=== PATIENT | male | born 1950 | race Caucasian/White ===

== ENCOUNTER 2018-03-18 17:13 | Emergency (ER) | payer OTHER ==
[2018-03-18] MEDS ORDERED: SODIUM CHLORIDE 0.9% 1000ML 1,000 ML IV ONE (17:41)
[2018-03-18 17:54] LABS: BASOPHILS % (AUTO) 0.4 % (0.0-5.0); EOSINOPHILS % (AUTO) 1.5 % (0.0-8.0); LYMPHOCYTES % (AUTO) 10.2 % (21.0-51.0); MEAN CORPUSCULAR HEMOGLOBIN 31.9 pg (27.0-33.0); MEAN CORPUSCULAR HGB CONC 33.9 g/dL (32.0-36.0); NEUTROPHILS % (AUTO) 75.9 % (40.0-77.0); PLATELET COUNT (AUTO) 211 K/uL (130-400); RED BLOOD CELL COUNT(AUTO) 4.57 MIL/uL (4.50-6.20); RED CELL DISTRIBUTION WIDTH 13.3 % (11.0-15.5); WHITE BLOOD COUNT (AUTO) 9.7 K/uL (4.8-10.8)
[2018-03-18 18:09] LABS: CREATININE 1.3 mg/dL (0.5-1.5); POTASSIUM 3.6 mmol/L (3.5-5.1)
[2018-03-18 18:13] LABS: ALBUMIN 3.4 g/dL (3.5-5.0); BILIRUBIN,TOTAL 0.3 mg/dL (0.2-1.0); TOTAL PROTEIN, SERUM 6.8 g/dL (6.0-8.3)
[2018-03-18] MEDS ORDERED: ONDANSETRON HCL 4 MG/2 ML VIAL ONE (18:26)
[2018-03-18] MEDS ORDERED: HYDROMORPHONE 1 MG/1 ML AMP ONE (18:26)
[2018-03-18 19:51] LABS: APPEARANCE,URINE Clear (CLEAR); BILIRUBIN,URINE Negative (NEGATIVE); COLOR,URINE Yellow (YELLOW); GLUCOSE, URINE (UA) Negative (NEGATIVE); KETONES,URINE Negative (NEGATIVE); LEUKOCYTE ESTERASE ,URINE Negative (NEGATIVE); NITRATE,URINE Negative (NEGATIVE); OCCULT BLOOD,URINE Small (NEGATIVE); PH,URINE 6.5 (5.0-8.0); PROTEIN,URINE Negative (NEGATIVE); UROBILINOGEN,URINE 0.2 mg/dL (0.2-1.0)
[2018-03-18 20:17] LABS: AMORPHOUS SEDIMENT,UR Rare /LPF (None Seen); BACTERIA,URINE Rare /HPF (None Seen); SQUAMOUS EPITHELIAL CELL,UR Rare /HPF (0-2); WBC,URINE 0-1 /HPF (0-1)
== END 2018-03-18 20:27 | disposition home or self-care (01) ==
LOC: EDH 17:13
DX: N20.1 Calculus of ureter (principal); I10 Essential (primary) hypertension; E11.9 Type 2 diabetes mellitus without complications; I25.10 Atherosclerotic heart disease of native coronary artery without angina pectoris; Z88.6 Allergy status to analgesic agent; Z90.49 Acquired absence of other specified parts of digestive tract; Z98.890 Other specified postprocedural states; Z87.891 Personal history of nicotine dependence
CPT/HCPCS: 36415; 74176; 80053; 81001; 83690; 84484; 85025; 93005; 96361; 96374; 96375; 99284; J1170; J2405; J7030

== ENCOUNTER 2021-11-23 11:21 | Emergency (ER) | payer OTHER ==
[~2021-11-23] VITALS: Ht 182.9 cm; Wt 84.8 kg
[2021-11-23] MEDS ORDERED: ASPIRIN 81MG CHEW TAB PO ONE (11:30)
[2021-11-23] MEDS ORDERED: LACTATED RINGERS 1000ML 1,000 ML IV ONE (11:30)
[2021-11-23 11:41] LABS: BASOPHILS % (AUTO) 0.2 % (0.0-5.0); EOSINOPHILS % (AUTO) 0.1 % (0.0-8.0); HEMATOCRIT 48.6 % (42-54); LYMPHOCYTES % (AUTO) 2.5 % (21.0-51.0); MEAN CORPUSCULAR HEMOGLOBIN 32.6 pg (27.0-33.0); MEAN CORPUSCULAR HGB CONC 34.4 g/dL (32.0-36.0); MEAN CORPUSCULAR VOLUME 94.9 fL (79-99); MONOCYTES % (AUTO) 6.3 % (3.0-13.0); NEUTROPHILS % (AUTO) 90.4 % (40.0-77.0); PLATELET COUNT (AUTO) 247 K/uL (130-400); RED BLOOD CELL COUNT(AUTO) 5.12 MIL/uL (4.50-6.20); RED CELL DISTRIBUTION WIDTH 13.3 % (11.0-15.5); WHITE BLOOD COUNT (AUTO) 11.7 K/uL (4.8-10.8)
[2021-11-23 11:54] LABS: CREATININE 1.1 mg/dL (0.5-1.5); POTASSIUM 4.1 mmol/L (3.5-5.1)
[2021-11-23 11:57] LABS: PROTHROMBIN TIME 10.9 SEC (9.6-11.6)
[2021-11-23 11:58] LABS: PARTIAL THROMBOPLASTIN TIME 25.4 SEC (26.3-35.5)
[2021-11-23 12:01] LABS: MAGNESIUM 1.9 mg/dL (1.80-2.40)
[2021-11-23 12:06] LABS: B-TYPE NATRIURETIC PEPTIDE 22 pg/mL (0-100)
[2021-11-23] MEDS ORDERED: MAG/ALUM/SIMETH 30 ML UDCUP PO ONE (12:30)
[2021-11-23] MEDS ORDERED: DICYCLOMINE HCL 10 MG/5 ML ML PO ONE (12:30)
[2021-11-23] MEDS ORDERED: LIDOCAINE HCL 2% VISCOUS 15 ML UDCUP PO ONE (12:30)
[2021-11-23 13:17] LABS: APPEARANCE,URINE CLOUDY (CLEAR); BILIRUBIN,URINE NEGATIVE (NEGATIVE); COLOR,URINE YELLOW (YELLOW); GLUCOSE, URINE (UA) NEGATIVE (NEGATIVE); KETONES,URINE 5 mg/dL (NEGATIVE); LEUKOCYTE ESTERASE ,URINE NEGATIVE Leu/uL (NEGATIVE); NITRATE,URINE NEGATIVE (NEGATIVE); OCCULT BLOOD,URINE NEGATIVE (NEGATIVE); PROTEIN,URINE 30 mg/dL (NEGATIVE); UROBILINOGEN,URINE 0.2 mg/dL (0.2-1.0)
[2021-11-23 13:42] VITALS: BP 123/67
[2021-11-23 13:44] LABS: RBC,URINE 0-1 /HPF (0-1)
[2021-11-23 13:45] LABS: AMORPHOUS SEDIMENT,UR Few /LPF (None Seen); BACTERIA,URINE Few /HPF (None Seen); SQUAMOUS EPITHELIAL CELL,UR None Seen /HPF (0-2); WBC,URINE 0-1 /HPF (0-1)
[2021-11-23] MEDS ORDERED: PANT40TA55 PO (13:51)
== END 2021-11-23 14:02 | disposition home or self-care (01) ==
LOC: EDH 11:21
DX: K29.70 Gastritis, unspecified, without bleeding (principal); Z88.6 Allergy status to analgesic agent
CPT/HCPCS: 99285; 96360; 71045; 96361; 82550; 83735; 83874; 84484; 80053; 83880; 83690; 85025; 85610; 85730; 81001; 36415; 93005 ×2; J7120

== ENCOUNTER → 2021-12-23 | Outpatient (CLI) | payer OTHER ==
[~2021-12-23] MED LIST: PANT40TA55 PO
== END | disposition home or self-care (01) ==
LOC: RAH 10:14
PROVIDERS: ATTEND Family Medicine
DX: M16.12 Unilateral primary osteoarthritis, left hip (principal); M25.552 Pain in left hip
CPT/HCPCS: 73502

== ENCOUNTER 2022-07-30 08:36 | Observation (INO) | payer OTHER ==
[~2022-07-30] VITALS: Ht 182.9 cm; Wt 73.5 kg
[2022-07-30] MEDS ORDERED: ONDANSETRON ODT 4MG TAB ONE (08:59)
[2022-07-30 09:14] LABS: BASOPHILS % (AUTO) 0.3 % (0.0-5.0); EOSINOPHILS % (AUTO) 0.1 % (0.0-8.0); HEMATOCRIT 42.4 % (42-54); LYMPHOCYTES % (AUTO) 7.6 % (21.0-51.0); MEAN CORPUSCULAR HEMOGLOBIN 33.1 pg (27.0-33.0); MEAN CORPUSCULAR HGB CONC 34.2 g/dL (32.0-36.0); MEAN CORPUSCULAR VOLUME 96.8 fL (79-99); MONOCYTES % (AUTO) 11.5 % (3.0-13.0); NEUTROPHILS % (AUTO) 79.4 % (40.0-77.0); PLATELET COUNT (AUTO) 237 K/uL (130-400); RED BLOOD CELL COUNT(AUTO) 4.38 MIL/uL (4.50-6.20); RED CELL DISTRIBUTION WIDTH 13.1 % (11.0-15.5); WHITE BLOOD COUNT (AUTO) 11.5 K/uL (4.8-10.8)
[2022-07-30 09:33] LABS: ALBUMIN 3.4 g/dL (3.5-5.0); CREATININE 1.4 mg/dL (0.5-1.5); POTASSIUM 4.1 mmol/L (3.5-5.1); TOTAL PROTEIN, SERUM 6.5 g/dL (6.0-8.3)
[2022-07-30 09:57] LABS: B-TYPE NATRIURETIC PEPTIDE 32 pg/mL (0-100)
[2022-07-30] MEDS ORDERED: MEPERIDINE-PF 25 MG/ML SYG IVP ONE (11:00)
[2022-07-30] MEDS ORDERED: LACTATED RINGERS 1000ML 1,000 ML IV ONE (11:00)
[2022-07-30] MEDS ORDERED: PROMETHAZINE HCL 25 MG/ML 1ML AMPULE IM ONE (11:00)
[2022-07-30 12:35] LABS: CREATINE KINASE, TOTAL 53 U/L (21-232); LIPASE 167 U/L (114-286)
[2022-07-30] MEDS ORDERED: MAGNESIUM 2GM PREMIX 50ML 50 ML IV PRN (13:00)
[2022-07-30] MEDS ORDERED: MORPHINE 2 MG SYG IV PRN (13:00)
[2022-07-30] MEDS ORDERED: POTASSIUM CHLORIDE 10% ELIXIR 20 MEQ/15 ML UDCUP PO PRN (13:00)
[2022-07-30] MEDS ORDERED: HYDROCODONE/ACETAMINOPHEN 5/325 MG TAB PO PRN (13:00)
[2022-07-30] MEDS: LACTATED RINGERS 1000ML 1,000 ML IV SCH ×2 (13:00→20:09)
[2022-07-30] MEDS ORDERED: POTASSIUM CHLORIDE 20MEQ/100ML 100 ML IV PRN ×2 (13:00)
[2022-07-30] MEDS ORDERED: DiphenhydrAMINE HCL 50 MG/ML VIAL IV PRN (13:00)
[2022-07-30] MEDS ORDERED: LACTULOSE 20 GM/30 ML UDCUP PO PRN (13:00)
[2022-07-30] MEDS ORDERED: CEFTRIAXONE 2GM VIAL IVPB SCH (13:00)
[2022-07-30] MEDS ORDERED: ACETAMINOPHEN 325 MG TAB PO PRN (13:00)
[2022-07-30] MEDS ORDERED: ALBUTEROL 0.083% 2.5 MG/3 ML INH IH PRN (13:00)
[2022-07-30] MEDS ORDERED: MORPHINE 4 MG SYG IV PRN (13:00)
[2022-07-30] MEDS ORDERED: ONDANSETRON 4MG INJ IV PRN (13:00)
[2022-07-30] MEDS ORDERED: GUAIFENESIN-DM 200/20 MG 10 ML PO PRN (13:00)
[2022-07-30] MEDS ORDERED: KCL 20 MEQ ERTAB PO PRN (13:00)
[2022-07-30] MEDS ORDERED: ZOLPIDEM TARTRATE 5 MG TAB PO PRN (13:00)
[2022-07-30] MEDS ORDERED: NITROGLYCERIN 0.4 MG SL TAB SL PRN (13:00)
[2022-07-30] MEDS ORDERED: CEFTRIAXONE 1G VIAL 2 GM in 0.9%NACL 100ML 100 ML IV SCH (13:00)
[2022-07-30] MEDS ORDERED: PHARMACY COMMUNICATION MISC SCH (13:30)
[2022-07-30 16:50] LABS: APPEARANCE,URINE CLEAR (CLEAR); BILIRUBIN,URINE NEGATIVE (NEGATIVE); COLOR,URINE LIGHT-YELLOW (YELLOW); GLUCOSE, URINE (UA) NEGATIVE (NEGATIVE); KETONES,URINE NEGATIVE (NEGATIVE); LEUKOCYTE ESTERASE ,URINE NEGATIVE Leu/uL (NEGATIVE); NITRATE,URINE NEGATIVE (NEGATIVE); OCCULT BLOOD,URINE NEGATIVE (NEGATIVE); PROTEIN,URINE NEGATIVE (NEGATIVE); UROBILINOGEN,URINE 0.2 mg/dL (0.2-1.0)
[2022-07-30 16:54] LABS: BACTERIA,URINE RARE /HPF (None Seen); MUCUS,URINE RARE LPF (None Seen); RBC,URINE 0-1 /HPF (0-1)
[2022-07-30] MEDS: TAMSULOSIN HCL 0.4 MG CAP.ER.24H PO SCH (17:48)
[2022-07-30 18:00] VITALS: BP 121/66
[2022-07-30] MEDS: FAMOTIDINE 20MG VIAL IV SCH (20:08)
[2022-07-30 20:44] VITALS: BP 129/71
[2022-07-31] VITALS (22 sets, daily range): BP systolic 109–167; BP diastolic 56–78
[2022-07-31 05:46] LABS: BASOPHILS % (AUTO) 0.3 % (0.0-5.0); EOSINOPHILS % (AUTO) 0.6 % (0.0-8.0); HEMATOCRIT 37.2 % (42-54); LYMPHOCYTES % (AUTO) 12.9 % (21.0-51.0); MEAN CORPUSCULAR HEMOGLOBIN 33.2 pg (27.0-33.0); MEAN CORPUSCULAR HGB CONC 33.6 g/dL (32.0-36.0); MEAN CORPUSCULAR VOLUME 98.7 fL (79-99); PLATELET COUNT (AUTO) 184 K/uL (130-400); RED BLOOD CELL COUNT(AUTO) 3.77 MIL/uL (4.50-6.20); RED CELL DISTRIBUTION WIDTH 13.2 % (11.0-15.5); WHITE BLOOD COUNT (AUTO) 8.6 K/uL (4.8-10.8)
[2022-07-31 05:59] LABS: MAGNESIUM 2.1 mg/dL (1.80-2.40)
[2022-07-31] MEDS: TAMSULOSIN HCL 0.4 MG CAP.ER.24H PO SCH (08:26)
[2022-07-31] MEDS ORDERED: ENOXAPARIN SODIUM 30 MG/0.3 ML SQ SCH (09:00)
[2022-07-31] MEDS: LACTATED RINGERS 1000ML 1,000 ML IV SCH (09:59)
[2022-07-31] MEDS: FAMOTIDINE 20MG VIAL IV SCH (10:01)
[2022-07-31] MEDS ORDERED: IOHEXOL-350 50ML VIAL IV ONE (10:22)
[2022-07-31] MEDS ORDERED: PROPOFOL 10 MG/ML 20ML VIAL IV ONE ×2 (12:53→14:12)
[2022-07-31] MEDS ORDERED: MIDAZOLAM HCL 1 MG/ML 2ML VIAL ONE (12:53)
[2022-07-31] MEDS ORDERED: ROCURONIUM 10MG/1ML SYR 10 MG/ML ML ONE (12:53)
[2022-07-31] MEDS ORDERED: FENTANYL CITRATE PF 50 MCG/1 ML 2ML VIAL ONE ×2 (12:53→13:20)
[2022-07-31] MEDS ORDERED: ONDANSETRON 4MG INJ ONE (12:53)
[2022-07-31] MEDS ORDERED: NEOSTIGMINE 5MG/5ML SYR IV ONE (14:09)
[2022-07-31] MEDS ORDERED: GLYCOPYRROLATE 1 MG/5 ML SYRINGE ONE (14:09)
[2022-07-31] MEDS ORDERED: CEFTRIAXONE 2GM VIAL IVPB SCH (15:00)
== END 2022-07-31 17:30 | disposition home or self-care (01) ==
LOC: EDH 08:36 → EDHIP 12:31 → 3AH 17:34 → 3DH 19:04
PROVIDERS: ADMIT Internal Medicine Pulmonary Disease; ATTEND Internal Medicine Pulmonary Disease
DX: N13.2 Hydronephrosis with renal and ureteral calculous obstruction (principal); N13.1 Hydronephrosis with ureteral stricture, not elsewhere classified; N40.1 Benign prostatic hyperplasia with lower urinary tract symptoms; N13.8 Other obstructive and reflux uropathy; N32.0 Bladder-neck obstruction; N21.0 Calculus in bladder; N32.89 Other specified disorders of bladder; I10 Essential (primary) hypertension; E78.00 Pure hypercholesterolemia, unspecified; E78.5 Hyperlipidemia, unspecified; E11.65 Type 2 diabetes mellitus with hyperglycemia; F03.A0 Unspecified dementia, mild, without behavioral disturbance, psychotic disturbance, mood disturbance, and anxiety; D72.829 Elevated white blood cell count, unspecified; E66.01 Morbid (severe) obesity due to excess calories; K56.609 Unspecified intestinal obstruction, unspecified as to partial versus complete obstruction; Z87.442 Personal history of urinary calculi; Z53.29 Procedure and treatment not carried out because of patient's decision for other reasons; Z79.899 Other long term (current) drug therapy
CPT/HCPCS: 96372; 96365; 96375; 82550; 84484 ×2; 80053; 83880; 83690; 85025 ×2; 87040 ×2; 81001; 36415 ×2; 74021; 71045; 74176; 99291; 93005; 52332; 96376; 83735; 80048; 82948; 82360; 74018; G0378 ×27; J7120; J3490 ×3; J2550; J0696; J2175; J7030; A4354; C2617; J3010 ×2; J2710; J2250; J2704 ×2; J2405; Q9967; A4358; C1769

== ENCOUNTER 2022-09-08 07:06 | Day surgery (SDC) | payer OTHER ==
[2022-09-02 11:24] LABS: BASOPHILS % (AUTO) 0.6 % (0.0-5.0); EOSINOPHILS % (AUTO) 1.9 % (0.0-8.0); HEMATOCRIT 42.7 % (42-54); MEAN CORPUSCULAR HEMOGLOBIN 32.8 pg (27.0-33.0); MEAN CORPUSCULAR HGB CONC 33.5 g/dL (32.0-36.0); MEAN CORPUSCULAR VOLUME 97.9 fL (79-99); MONOCYTES % (AUTO) 10.9 % (3.0-13.0); NEUTROPHILS % (AUTO) 71.4 % (40.0-77.0); PLATELET COUNT (AUTO) 265 K/uL (130-400); RED BLOOD CELL COUNT(AUTO) 4.36 MIL/uL (4.50-6.20); RED CELL DISTRIBUTION WIDTH 12.9 % (11.0-15.5); WHITE BLOOD COUNT (AUTO) 8.1 K/uL (4.8-10.8)
[2022-09-02 11:26] VITALS: BP 146/76
[2022-09-02 11:35] LABS: APPEARANCE,URINE CLOUDY (CLEAR); BILIRUBIN,URINE NEGATIVE (NEGATIVE); COLOR,URINE LIGHT-YELLOW (YELLOW); GLUCOSE, URINE (UA) NEGATIVE (NEGATIVE); KETONES,URINE NEGATIVE (NEGATIVE); LEUKOCYTE ESTERASE ,URINE 75 Leu/uL (NEGATIVE); NITRATE,URINE NEGATIVE (NEGATIVE); OCCULT BLOOD,URINE LARGE (NEGATIVE); PROTEIN,URINE 100 mg/dL (NEGATIVE); UROBILINOGEN,URINE 0.2 mg/dL (0.2-1.0)
[2022-09-02 12:15] LABS: BACTERIA,URINE RARE /HPF (None Seen); MUCUS,URINE RARE LPF (None Seen); RBC,URINE TNTC /HPF (0-1); SQUAMOUS EPITHELIAL CELL,UR RARE /HPF (0-2)
[2022-09-02 12:36] LABS: CREATININE 0.9 mg/dL (0.5-1.5); POTASSIUM 4.1 mmol/L (3.5-5.1)
[~2022-09-08] VITALS: Ht 180.3 cm; Wt 81.6 kg
[2022-09-08] VITALS (20 sets, daily range): BP systolic 115–164; BP diastolic 51–91
[~2022-09-08 07:06] MED LIST changes: +CEFTRIAXONE 1G VIAL IVPB SCH; -PANT40TA55 PO
[2022-09-08] MEDS ORDERED: 0.9%NACL 1000ML 1,000 ML IV ONE (07:14)
[2022-09-08] MEDS ORDERED: LOSA50TA64 PO (08:02)
[2022-09-08] MEDS ORDERED: GABA-529 PO (08:02)
[2022-09-08] MEDS ORDERED: ATOR40TA71 PO (08:02)
[2022-09-08] MEDS ORDERED: FINA5TAB41 PO (08:02)
[2022-09-08] MEDS ORDERED: MECL-160 PO (08:02)
[2022-09-08] MEDS ORDERED: ZINC50TA15 PO (08:02)
[2022-09-08] MEDS ORDERED: TRAM-355 PO (08:02)
[2022-09-08] MEDS ORDERED: SERT-440 PO (08:02)
[2022-09-08] MEDS ORDERED: METF-444 PO (08:02)
[2022-09-08] MEDS ORDERED: IOHEXOL-350 50ML VIAL IV ONE (08:16)
[2022-09-08] MEDS ORDERED: KETAMINE 50MG/ML SYRINGE 50 MG/ML DISP.SYRIN ONE (08:42)
[2022-09-08] MEDS ORDERED: LIDOCAINE PF 100MG/5ML (2%) SYRINGE 5ML ONE (09:51)
[2022-09-08] MEDS ORDERED: ROCURONIUM 10MG/1ML SYR 10 MG/ML ML ONE (09:51)
[2022-09-08] MEDS ORDERED: FENTANYL CITRATE PF 50 MCG/1 ML 2ML VIAL ONE (09:51)
[2022-09-08] MEDS ORDERED: PROPOFOL 10 MG/ML 20ML VIAL IV ONE (09:51)
[2022-09-08] MEDS ORDERED: SUCCINYLCHOLINE 200MG/10ML SYR ONE (09:53)
[2022-09-08] MEDS ORDERED: CEFAZOLIN SODIUM 2 GM VIAL IVPB ONE (10:10)
[2022-09-08] MEDS ORDERED: GLYCOPYRROLATE 1 MG/5 ML SYRINGE ONE (10:49)
[2022-09-08] MEDS ORDERED: ONDANSETRON 4MG INJ ONE (11:01)
[2022-09-08] MEDS ORDERED: NEOSTIGMINE 5MG/5ML SYR IV ONE (11:01)
[2022-09-08] MEDS ORDERED: MEPERIDINE-PF 25 MG/ML SYG ONE ×2 (11:24→11:35)
[2022-09-08] MEDS ORDERED: TRAMADOL HCL 50 MG TABLET ONE (12:33)
== END 2022-09-08 13:15 | disposition home or self-care (01) ==
LOC: DAH 07:06
PROVIDERS: ATTEND Urology
DX: N13.5 Crossing vessel and stricture of ureter without hydronephrosis (principal); Z20.822 Contact with and (suspected) exposure to COVID-19; N40.0 Benign prostatic hyperplasia without lower urinary tract symptoms; N20.1 Calculus of ureter; I10 Essential (primary) hypertension; E11.9 Type 2 diabetes mellitus without complications; E78.5 Hyperlipidemia, unspecified; I25.2 Old myocardial infarction; Z88.8 Allergy status to other drugs, medicaments and biological substances; Z88.6 Allergy status to analgesic agent; Z87.891 Personal history of nicotine dependence
CPT/HCPCS: 80048; 85025; 87088; 87426; 81001; 36415; 93005; 52001; 52351; 52332; 82948 ×2; 74018; A6260; A4663; J7030 ×2; A4354; C1758; C2617; J3010; J0330; J3490 ×2; J2710; J2001; J0696; J2704; J2405; J2175 ×2; J0690; A4358; A4930; A4215; A4223; A4222; A4221; C1769; A4600; 74420; Q9967